=== PATIENT | female | born 1970 | race African-American/Black ===

== ENCOUNTER → 2017-04-18 | Outpatient (CLI) | payer OTHER ==
--- NOTE | ~2017-04-18 | MR160 ---
[facility] A Service of [facility] [place] RADIOLOGY TEXT RESULTS PATIENT: WANDA MARTINEZ LOCATION: [facility] : 70 UNIT #: [id number] AGE: [address]: DEVAN CHURCH SEX: F ORDER DR: [id number] [address] [address] [id number] O MR#: [id number] Acc #: [id number] NAME: WANDA MARTINEZ. : 1970 SEX: F STUDY DATE/TIME: 04/18/2017 13:55 UNIT: [facility] ROOM: STUDY DESCRIPTION: MR Shoulder W Contrast Lt Attending Physician: Devan Church M.D. Referring Physician: Devan Church M.D. Ordering Physician: Staff Doctor Not On Primary Care Physician: Devan Church M.D. MRI CENTER REPORT This report is preliminary unless electronic signature is present. EXAM MRI arthrogram left shoulder 04/18/2017 COMPARISON Left shoulder arthrogram 04/18/2017. HISTORY Order states left shoulder strain. History sheet states left shoulder pain for 2.5 months. The patient slid and almost fell on 03/26/2017. Incident worsened the pain. Hydrocortisone injections for arthritis. No shoulder surgery. FINDINGS The arthrogram was reportedly performed at approximately 10:00 a.m. on 04/18/17. Due to claustrophobia, the patient was unable to tolerate the MRI at [facility] post injection. The patient subsequently had the MRI scan done at approximately 2:00 p.m. at [facility] on a large bore magnet. The patient was unable to tolerate the abduction-external rotation position sequence. There is an anterior contrast extravasation likely in part related to the time delay. The exam, however, does appear diagnostic. There is minimal capsuloligamentous thickening of the AC joint but no sizable osteophytes or high-grade arthrosis. There is mild supraspinatus tendinosis without a tear. The rotator cuff complex is otherwise normal. There is mild inflammation (not contrast) in the subacromial-subdeltoid bursa and is a nonspecific finding. Biceps anchor, biceps tendon, and glenoid labrum are within normal limits. Glenohumeral joint shows no chondral/osteochondral lesion or visible loose body. [facility] A Service of [facility] RADIOLOGY TEXT RESULTS PATIENT: WANDA MARTINEZ LOCATION: [facility] : 70 UNIT #: [id number] AGE: [address]: DEVAN CHUCRH SEX: F ORDER DR: There is no marrow lesion, fracture, or muscle atrophy. IMPRESSION 1. Mild supraspinatus tendinosis without a tear. 2. Mild nonspecific inflammation of the subacromial-subdeltoid bursa. 3. Minimal capsuloligamentous thickening at the AC joint but no high-grade arthrosis. 4. The exam is, otherwise, normal. 5. The exam is diagnostic despite the delay between the contrast injection and the subsequent MRI performed on the large bore scanner at [facility]. Dictated by... Dianne Morelos M.D. THIS IS AN ELECTRONICALLY VERIFIED REPORT Dianne Morelos M.D. at 04/20/2017 8:13 AM MISA/josh TD: 04/19/2017 11:39 JOB #: [id number] MRI CENTER REPORT Page 1 of 1
== END | disposition home or self-care (01) ==
LOC: SMRI 13:45
DX: S46.912A Strain of unspecified muscle, fascia and tendon at shoulder and upper arm level, left arm, initial encounter (principal); M75.81 Other shoulder lesions, right shoulder; M75.51 Bursitis of right shoulder
CPT/HCPCS: 73222